=== PATIENT | female | born 1975 | race Caucasian/White ===

== ENCOUNTER → 2017-05-17 | Outpatient (CLI) | payer BC, OTHER ==
[2017-05-17 13:25] LABS: BASO % 0.3 % (0.0-1.0); EOS # 0.1 10^3/uL (0.0-0.50); EOS % 1.3 % (0.0-3.0); IMMATURE GRANULOCYTE % 0.3 % (0-0); LYMPH # 1.5 10^3/uL (1.5-4.5); LYMPH % 24.8 % (24.0-44.0); MEAN CORPUSCULAR HGB CONC 31.8 g/dl (32.0-36.5); MEAN CORPUSCULAR VOLUME 84.7 fl (80.0-96.0); MONO # 0.4 10^3/uL (0.0-0.8); MONO % 7.1 % (0.0-5.0); NEUTROPHILS # 4.1 10^3/uL (1.8-7.7); NEUTROPHILS % 66.2 % (36.0-66.0); PLATELET COUNT, AUTOMATED 312 10^3/uL (150-450); RED CELL DISTRIBUTION WIDTH 13.4 % (11.5-14.5); WHITE BLOOD COUNT 6.2 10^3/uL (4.0-10.0)
[2017-05-17 14:14] LABS: ALBUMIN 3.8 GM/DL (3.2-5.2); ALBUMIN/GLOBULIN RATIO 1.06 (1.00-1.93); ALKALINE PHOSPHATASE 62 U/L (45-117); ALT/SGPT 15 U/L (12-78); ANION GAP 8 MEQ/L (8-16); AST/SGOT 11 U/L (7-37); BILIRUBIN,TOTAL 0.4 MG/DL (0.2-1.0); BLOOD UREA NITROGEN 15 MG/DL (7-18); CALCIUM LEVEL 8.9 MG/DL (8.5-10.1); CARBON DIOXIDE LEVEL 27 MEQ/L (21-32); CHLORIDE LEVEL 104 MEQ/L (98-107); CHOLESTEROL LEVEL 209 MG/DL (<200); CREATININE FOR GFR 0.89 MG/DL (0.55-1.02); GLOMERULAR FILTRATION RATE > 60.0 (>60); GLUCOSE, FASTING 79 MG/DL (70-105); POTASSIUM SERUM 4.3 MEQ/L (3.5-5.1); SODIUM LEVEL 139 MEQ/L (136-145); TOTAL PROTEIN 7.4 GM/DL (6.4-8.2); TRIGLYCERIDES LEVEL 87 MG/DL (<150)
== END ==
LOC: M LAB 12:39
PROVIDERS: ATTEND Physician Assistant Medical
DX: Z83.3 Family history of diabetes mellitus (principal)

== ENCOUNTER → 2017-07-09 | Outpatient (REF) | payer BC, OTHER | LOC: M LAB REF 17:50 | DX: Z12.4 Encounter for screening for malignant neoplasm of cervix (principal) | CPT/HCPCS: G0123 ==

== ENCOUNTER → 2019-10-12 | Outpatient (CLI) | payer BC, OTHER ==
[2019-10-12 19:49] LABS: BASO % 0.4 % (0.0-1.0); EOS # 0.1 10^3/uL (0.0-0.5); EOS % 1.9 % (0.0-3.0); HEMATOCRIT 38.9 % (36.0-47.0); HEMOGLOBIN 12.2 g/dl (12.0-15.5); LYMPH # 1.7 10^3/uL (1.5-5.0); LYMPH % 24.7 % (24.0-44.0); MEAN CORPUSCULAR HEMOGLOBIN 27.4 pg (27.0-33.0); MEAN CORPUSCULAR HGB CONC 31.4 g/dl (32.0-36.5); MEAN CORPUSCULAR VOLUME 87.2 fl (80.0-96.0); MONO # 0.7 10^3/uL (0.0-0.8); MONO % 9.4 % (0.0-5.0); NEUTROPHILS # 4.4 10^3/uL (1.5-8.5); NEUTROPHILS % 63.3 % (36.0-66.0); PLATELET COUNT, AUTOMATED 320 10^3/uL (150-450); RED BLOOD COUNT 4.46 10^6/uL (4.00-5.40); WHITE BLOOD COUNT 6.9 10^3/uL (4.0-10.0)
[2019-10-12 20:32] LABS: ALBUMIN 3.6 GM/DL (3.2-5.2); ALT/SGPT 15 U/L (12-78); AMYLASE 45 U/L (25-115); BILIRUBIN,TOTAL 0.3 MG/DL (0.2-1.0); BLOOD UREA NITROGEN 17 MG/DL (7-18); CARBON DIOXIDE LEVEL 27 MEQ/L (21-32); CHLORIDE LEVEL 108 MEQ/L (98-107); CREATININE FOR GFR 0.94 MG/DL (0.55-1.30); GLOMERULAR FILTRATION RATE > 60.0 (>58); GLUCOSE, FASTING 74 MG/DL (70-100); LIPASE 86 U/L (73-393); SODIUM LEVEL 142 MEQ/L (136-145); TOTAL PROTEIN 7.1 GM/DL (6.4-8.2)
== END ==
LOC: M WUC 15:49
PROVIDERS: ATTEND Physician Assistant
DX: R10.9 Unspecified abdominal pain (principal)

== ENCOUNTER → 2019-10-20 | Outpatient (CLI) | payer BC, OTHER ==
[~2019-10-20] MED LIST: GASTROGRAFIN SOLUTION 30ML (Q9963) As Ordered ONE; ISOVUE-370 76% 100ML VIAL As Ordered ONE
--- NOTE | 2019-10-20 15:50 | REP ---
CT ABDOMEN AND PELVIS WITH IV AND ORAL CONTRAST: HISTORY: Abdomen pain. CT CONTRAST DOSE: 100 mL of intravenous Isovue 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 The lung bases are clear on axial CT images. There is a cyst in the left lobe of the liver measuring 1.1 cm in greatest diameter. No other focal liver lesion is seen. The spleen is unremarkable. Normal adrenal glands are seen bilaterally. No abnormalities noted in the gallbladder or in the pancreas. No retroperitoneal mass or adenopathy is observed. The kidneys enhance symmetrically and are morphologically intact. The left kidney is slightly smaller than the right. There is a tiny accessory splenule just beneath the spleen. Small and large intestinal bowel loops are normal in the upper abdomen. No abdominal wall defect is seen. There is some lipomatous change at the ileocecal valve. There is moderate large bowel content throughout the colon. Normal appendix is seen medial to the cecum in the central superior pelvis. There is no CT evidence of appendicitis. A normal left ovary is seen. The right ovary is somewhat enlarged and contains a septated cystic process. Its overall dimensions are 5.5 x 4.1 x 4.4 cm. There is no evidence of ascites. No pelvic adenopathy is seen. The uterus appears somewhat retroverted. Urinary bladder is unremarkable. No bony destructive lesion is seen. IMPRESSION: Normal appendix is visible. Septated cystic enlargement right ovary. I cannot exclude early ovarian neoplasm. Right ovary is positioned somewhat posteriorly in the pelvis and ovarian torsion could be in the differential as well if this is an acute pain presentation. Electronically Signed by Leland Flores MD 10/20/2019 04:20 P
== END ==
LOC: M RAD 12:34
PROVIDERS: ATTEND Physician Assistant
DX: R10.9 Unspecified abdominal pain (principal)
CPT/HCPCS: 74177; Q9963; Q9967

== ENCOUNTER → 2019-10-31 | Outpatient (CLI) | payer OTHER | LOC: M WHC 08:45 | PROVIDERS: ATTEND Obstetrics & Gynecology | DX: N83.201 Unspecified ovarian cyst, right side (principal); Z53.9 Procedure and treatment not carried out, unspecified reason ==

== ENCOUNTER → 2019-11-16 | Outpatient (CLI) | payer BC ==
--- NOTE | 2019-11-16 19:59 | REP ---
Clinical: Right ovarian cyst . Technique: Transabdominal pelvic ultrasound followed by transvaginal examination for better evaluation of the endometrium and adnexa with color Doppler evaluation of the ovaries. Findings: Bladder is under distended Heterogeneous retroverted uterus measures 7.4 x 3.9 x 5.6 cm . The endometrial complex measures 18 mm thickness and appears echogenic. No discrete uterine or endometrial abnormalities are appreciated. Nabothian cysts are identified measuring up to 10 mm. Bilateral ovaries are normal in vascularity without evidence for torsion. Right ovary measures 5.6 x 3.4 x 6.7 cm (RI 0.78) and includes 5.0 x 6.5 x 3.0 cm complex cyst. Left ovary measures 3.9 x 2.7 x 3.7 cm (RI 0.67) and includes 2.1 cm simple cyst and 3.1 x 2.4 x 2.0 cm complex cyst. No pelvic free fluid. Impression: 1. Heterogeneous retroverted uterus with thickened endometrium. No discrete uterine or endometrial abnormality otherwise identified. 2. Complex bilateral ovarian cysts. Follow-up examination in 4-6 weeks to evaluate for resolution is recommended.
== END ==
LOC: M WHC 15:33
PROVIDERS: ATTEND Obstetrics & Gynecology
DX: N83.201 Unspecified ovarian cyst, right side (principal); N83.202 Unspecified ovarian cyst, left side

== ENCOUNTER 2019-11-25 16:32 | Emergency (ER) | payer BC, OTHER ==
[~2019-11-25] VITALS: Ht 157.5 cm; Wt 75.3 kg
[2019-11-25] MEDS ORDERED: NS 1,000 ML IV ONE (17:15)
[2019-11-25] MEDS ORDERED: KETOROLAC 30 MG/ML 1ML VIAL IV ONE (17:15)
[2019-11-25 17:17] LABS: BASO % 0.2 % (0.0-1.0); EOS # 0.1 10^3/uL (0.0-0.5); EOS % 0.9 % (0.0-3.0); HEMATOCRIT 42.6 % (36.0-47.0); HEMOGLOBIN 13.9 g/dl (12.0-15.5); LYMPH # 1.4 10^3/uL (1.5-5.0); MEAN CORPUSCULAR HEMOGLOBIN 27.9 pg (27.0-33.0); MEAN CORPUSCULAR HGB CONC 32.6 g/dl (32.0-36.5); MEAN CORPUSCULAR VOLUME 85.4 fl (80.0-96.0); MONO # 0.6 10^3/uL (0.0-0.8); MONO % 5.7 % (0.0-5.0); NEUTROPHILS # 8.5 10^3/uL (1.5-8.5); PLATELET COUNT, AUTOMATED 307 10^3/uL (150-450); RED BLOOD COUNT 4.99 10^6/uL (4.00-5.40); WHITE BLOOD COUNT 10.7 10^3/uL (4.0-10.0)
[2019-11-25 17:45] LABS: ALBUMIN 3.8 GM/DL (3.2-5.2); BILIRUBIN,DIRECT 0.1 MG/DL (0.0-0.2); BILIRUBIN,TOTAL 0.4 MG/DL (0.2-1.0); TOTAL PROTEIN 7.5 GM/DL (6.4-8.2)
[2019-11-25] MEDS ORDERED: ISOVUE-370 76% 100ML VIAL As Ordered ONE (17:53)
--- NOTE | 2019-11-25 18:30 | REPVR ---
PROCEDURE INFORMATION: Exam: CT Abdomen And Pelvis With Contrast Exam date and time: 11/25/2019 5:58 PM Age: 44 years old Clinical indication: Abdominal pain; Localized; Lower; Additional info: Lower abd pain, elev. Wbc, HX gallstones, ovary cysts TECHNIQUE: Imaging protocol: Computed tomography of the abdomen and pelvis with intravenous contrast. Radiation optimization: All CT scans at this facility use at least one of these dose optimization techniques: automated exposure control; mA and/or kV adjustment per patient size (includes targeted exams where dose is matched to clinical indication); or iterative reconstruction. Contrast material: ISOVUE 370; Contrast volume: 100 ml; Contrast route: IV; COMPARISON: CT ABD PELVIS WITH CONTRAST 10/20/2019 2:23 PM FINDINGS: Liver: There is a 10 mm simple cyst in the left lobe of the liver. No change from prior scan. The The liver is otherwise normal. Gallbladder and bile ducts: There is a calcified gallstone within the gallbladder. No wall thickening. Bile ducts are normal. Pancreas: The pancreas is normal. Spleen: The spleen is normal. Adrenals: The adrenal glands are normal. Kidneys and ureters: The kidneys are normal.No hydronephrosis. Stomach and bowel: Unremarkable. No obstruction. No mucosal thickening. Appendix: The appendix is well visualized and is normal. Intraperitoneal space: There is a small amount of free fluid in the right side of the no fluid collection. No free air. pelvis, also present on the prior scan. Vasculature: Unremarkable. No abdominal aortic aneurysm. Lymph nodes: Unremarkable. No enlarged lymph nodes. Bladder: Unremarkable as visualized. Reproductive: There is a large right ovarian cyst measuring up to 6 cm.. It measured 5 cm. On the recent comparison scan. There is a left ovarian cyst measuring up to 3.5 cm. Not seen on the prior scan. The endometrium is thickened. Bones/joints: Unremarkable. No acute fracture. Soft tissues: Unremarkable. IMPRESSION: 6 cm complex right ovarian cyst appears slightly larger than on the recent comparison scan. Cystic neoplasm cannot be excluded. There is a new 3.5 cm left ovarian cyst. Electronically signed by: Pako Keyes On 11/25/2019 18:30:08 PM
--- NOTE | 2019-11-25 20:37 | REPVR ---
PROCEDURE INFORMATION: Exam: US Nonobstetric Pelvis; Complete Exam date and time: 11/25/2019 8:14 PM Age: 44 years old Clinical indication: Pelvic pain; Additional info: Large cysts, R/O torsion TECHNIQUE: Imaging protocol: Transabdominal pelvic nonobstetric ultrasound. Complete exam. Real time ultrasound with image documentation. COMPARISON: PELVIS NON-OB COMPLETE US 11/16/2019 4:20 PM FINDINGS: Uterus/cervix: The uterus measures 6.2 x 4.6 x 5.6 cm. The endometrium is thickened measuring 25 mm which is increased from 18 mm on the previous scan. Uterus is retroverted. No discrete mass identified. Right adnexa: The right ovary measures 5.1 x 4.1 x 6.2 cm. It contains a complex cystic structure measuring 4.3 x 2.8 x 5.8 cm. This does not appear larger than on the prior scan. There are septations and internal echogenic material. This suggest hemorrhage. It appears avascular. There is no evidence of torsion. Left adnexa: The left ovary measures 3.2 x 3.1 x 3.4 cm. It contains a cyst measuring 3.0 x 2.7 x 2.7 cm. This is slightly larger than on the prior scan. It contains internal echoes. No evidence of torsion. Free fluid: There is a trace of free fluid in the pelvic cul-de-sac. Bladder: Normal. IMPRESSION: 1. Complex cyst in the right ovary measuring up to 5.8 cm. No abnormal vascularity. No torsion. This is most consistent with a hemorrhagic cyst. 4-6 week continued follow up recommended. 2. Left ovarian cyst measuring 3.0 x 2.7 x 2.7 cm also appears hemorrhagic. Slightly larger than on the prior scan. Continued short-term follow-up in 4-6 weeks suggested. 3. Persistent endometrial thickening. Electronically signed by: Pako Keyes On 11/25/2019 20:36:56 PM
[2019-11-25] MEDS ORDERED: HYDR-3715 PO (21:01)
[2019-11-25 21:10] VITALS: BP 130/68
[2019-11-25] MEDS ORDERED: NORCO 5/325MG TABLET (BULK FOR ED) PO ONE (21:15)
--- NOTE | 2019-11-26 07:32 | ED PDOC ---
Post-Departure Follow-Up dr veliz and yu carty faxed formal report of pelvic us for fu mg Juanis Cullen MD Nov 26, 2019 07:32
== END 2019-11-25 21:21 | disposition home or self-care (01) ==
LOC: M ED 16:32
DX: N83.201 Unspecified ovarian cyst, right side (principal); N83.202 Unspecified ovarian cyst, left side; R93.89 Abnormal findings on diagnostic imaging of other specified body structures; K80.20 Calculus of gallbladder without cholecystitis without obstruction; Z87.42 Personal history of other diseases of the female genital tract; Z86.79 Personal history of other diseases of the circulatory system; Z88.0 Allergy status to penicillin
CPT/HCPCS: 74177; 76830; 76856; 80047; 80076; 81001; 83690; 84702; 85025; 93976; 96361; 96374; 99284; J1885; Q9967

== ENCOUNTER → 2019-12-06 | Outpatient (CLI) | payer BC, OTHER ==
[~2019-12-06] MED LIST changes: +ALLE24TA7 PO; +D31000TA2 PO; -GASTROGRAFIN SOLUTION 30ML (Q9963) As Ordered ONE; +HYDR-3715 PO; +IBUP-1022 PO; -ISOVUE-370 76% 100ML VIAL As Ordered ONE; +MULTCAP PO
[2019-12-06 16:29] LABS: C REACTIVE PROTEIN QUANTITATIV < 0.30 MG/DL (0.00-0.30); IMMUNOGLOBULIN G 1230 MG/DL (681-1648)
[2019-12-09 12:08] LABS: F002-IgE Milk < 0.10 kU/L (Class 0); F004-IgE Wheat < 0.10 kU/L (Class 0); F013-IgE Peanut < 0.10 kU/L (Class 0); F014-IgE Soybean < 0.10 kU/L (Class 0); F026-IgE Pork < 0.10 kU/L (Class 0); F027-IgE Beef < 0.10 kU/L (Class 0); F245-IgE Egg, Whole < 0.10 kU/L (Class 0); FX02-IgE Food Mix (Sea Foods) Negative (.); TISSUE TRANSGLUTAMINASE IgA <2 U/mL (0-3)
== END ==
LOC: M WUC 13:26
PROVIDERS: ATTEND Specialist
DX: R10.30 Lower abdominal pain, unspecified (principal)

== ENCOUNTER → 2019-12-15 | Outpatient (REF) | payer OTHER ==
[~2019-12-15] MED LIST changes: -ALLE24TA7 PO; -D31000TA2 PO; +VITAD1000T PO
== END ==
LOC: M LAB REF 10:47
PROVIDERS: ATTEND Specialist
DX: R10.30 Lower abdominal pain, unspecified (principal)

== ENCOUNTER → 2019-12-30 | Outpatient (CLI) | payer BC, OTHER ==
[~2019-12-30] MED LIST changes: +ALLE24TA7 PO; +D31000TA2 PO; -VITAD1000T PO
== END ==
LOC: M LABSMTC 11:53
PROVIDERS: ATTEND Anesthesiology
DX: Z01.818 Encounter for other preprocedural examination (principal); Z11.59 Encounter for screening for other viral diseases
CPT/HCPCS: C9803; U0003

== ENCOUNTER → 2020-01-01 | Outpatient (CLI) | payer BC, OTHER ==
[2020-01-01 13:39] LABS: BASO % 0.4 % (0.0-1.0); EOS # 0.1 10^3/uL (0.0-0.5); EOS % 1.5 % (0.0-3.0); HEMATOCRIT 40.8 % (36.0-47.0); LYMPH % 19.2 % (24.0-44.0); MEAN CORPUSCULAR HEMOGLOBIN 27.8 pg (27.0-33.0); MEAN CORPUSCULAR HGB CONC 31.9 g/dl (32.0-36.5); MEAN CORPUSCULAR VOLUME 87.4 fl (80.0-96.0); MONO # 0.4 10^3/uL (0.0-0.8); MONO % 7.4 % (0.0-5.0); NEUTROPHILS # 3.9 10^3/uL (1.5-8.5); NEUTROPHILS % 71.3 % (36.0-66.0); PLATELET COUNT, AUTOMATED 312 10^3/uL (150-450); RED BLOOD COUNT 4.67 10^6/uL (4.00-5.40); WHITE BLOOD COUNT 5.4 10^3/uL (4.0-10.0)
[2020-01-01 14:26] LABS: BLOOD UREA NITROGEN 9 MG/DL (7-18); CALCIUM LEVEL 9.1 MG/DL (8.5-10.1); CARBON DIOXIDE LEVEL 26 MEQ/L (21-32); CHLORIDE LEVEL 108 MEQ/L (98-107); CREATININE FOR GFR 0.89 MG/DL (0.55-1.30); FREE T4 1.13 NG/DL (0.76-1.46); GLOMERULAR FILTRATION RATE > 60.0 (>58); GLUCOSE, FASTING 88 MG/DL (70-100); POTASSIUM SERUM 4.3 MEQ/L (3.5-5.1); SODIUM LEVEL 139 MEQ/L (136-145)
[2020-01-01 14:29] LABS: FOLATE 19.1 NG/ML; VITAMIN B12 LEVEL 508 PG/ML
== END ==
LOC: M WUC 10:43
PROVIDERS: ATTEND Physician Assistant Medical
DX: R20.2 Paresthesia of skin (principal); E55.9 Vitamin D deficiency, unspecified

== ENCOUNTER 2020-01-04 08:45 | Day surgery (SDC) | payer BC, OTHER ==
[~2020-01-04] VITALS: Ht 157.5 cm; Wt 72.6 kg
[2020-01-04] VITALS (7 sets, daily range): BP systolic 106–132; BP diastolic 58–78
[~2020-01-04 08:45] MED LIST changes: -ALLE24TA7 PO; -D31000TA2 PO; +LIDOCAINE 1% MDV 20ML VIAL SQ PRN; +LR 1,000 ML IV ONE; +VITAD1000T PO
[2020-01-04] MEDS ORDERED: propofoL 200 MG/20 ML VIAL As Ordered ONE (09:11)
[2020-01-04] MEDS ORDERED: KETOROLAC 60MG 2ML VIAL As Ordered ONE (09:11)
[2020-01-04] MEDS ORDERED: dexameTHASONE 4 MG/ML 1ML VIAL (J1100 PER 1MG) As Ordered ONE (09:11)
[2020-01-04] MEDS ORDERED: ROCURONIUM BROMIDE 50 MG/5 ML VIAL As Ordered ONE ×2 (09:11→11:20)
[2020-01-04] MEDS ORDERED: LIDOCAINE 2% 100MG/5ML SDV (FOR ANES.) As Ordered ONE (09:11)
[2020-01-04] MEDS ORDERED: ONDANSETRON 4MG/2ML VIAL As Ordered ONE (09:11)
[2020-01-04] MEDS ORDERED: SUGAMMADEX SODIUM 500 MG/5 ML VIAL (BRIDION) As Ordered ONE (09:11)
[2020-01-04] MEDS ORDERED: MIDAZOLAM INJ 2MG/2ML VIAL (J2250 PER 1MG) As Ordered ONE (09:12)
[2020-01-04] MEDS ORDERED: fentaNYL 250 MCG/5 ML INJECTION (J3010) As Ordered ONE (09:12)
[2020-01-04] MEDS ORDERED: ALLE24TA7 PO (09:24)
[2020-01-04 09:27] LABS: HEMATOCRIT 39.8 % (36.0-47.0); HEMOGLOBIN 12.7 g/dl (12.0-15.5); MEAN CORPUSCULAR HEMOGLOBIN 27.9 pg (27.0-33.0); MEAN CORPUSCULAR HGB CONC 31.9 g/dl (32.0-36.5); MEAN CORPUSCULAR VOLUME 87.5 fl (80.0-96.0); PLATELET COUNT, AUTOMATED 304 10^3/uL (150-450); RED BLOOD COUNT 4.55 10^6/uL (4.00-5.40); WHITE BLOOD COUNT 5.3 10^3/uL (4.0-10.0)
[2020-01-04] MEDS ORDERED: ceFAZolin SOD 2 GM in IV 1 EA IV ONE (10:00)
[2020-01-04] MEDS ORDERED: ACETAMINOPHEN 1000MG 100ML IV BTL (OFIRMEV) (J0131 PER 10MG) As Ordered ONE ×2 (11:17→11:20)
[2020-01-04] MEDS ORDERED: HYDROmorphone HCL 2 MG/ML 1ML VIAL (J1170) As Ordered ONE (12:30)
[2020-01-04] MEDS ORDERED: MORPHINE 1MG/ML IN 0.9% NACL 100ML IV BAG IV PRN (14:15)
[2020-01-04] MEDS ORDERED: NS 1,000 ML IV SCH (14:15)
[2020-01-04] MEDS ORDERED: LR 1,000 ML IV SCH (14:15)
[2020-01-04] MEDS ORDERED: EPIDURAL/PCA KEYS XX PRN (14:15)
[2020-01-04] MEDS ORDERED: NALBUPHINE HCL 10 MG/ML AMP (J2300) IV PRN (14:15)
[2020-01-04] MEDS ORDERED: oxyCODONE 5MG TAB PO PRN (14:15)
[2020-01-04] MEDS ORDERED: diphenhydrAMINE 50MG/ML VIAL (J1200) IV PRN (14:15)
[2020-01-04] MEDS ORDERED: ONDANSETRON 4MG/2ML VIAL IV PRN (14:15)
[2020-01-04] MEDS ORDERED: NALOXONE INJ 0.4MG/1ML VIAL (J2310 PER 1MG) IV PRN (14:15)
[2020-01-04] MEDS ORDERED: HYDROMORPHONE HCL 0.5 MG/ 0.5 ML SYRINGE (J1170 PER 1) IV PRN (14:15)
[2020-01-04] MEDS: fentaNYL 100 MCG/2 ML INJECTION (J3010) IV PRN ×2 (14:22→14:29)
[2020-01-04] MEDS: LR 1,000 ML IV SCH (18:23)
[2020-01-04] MEDS: IBUPROFEN 600MG TAB PO PRN (20:03)
[2020-01-05] VITALS: BP 126/68
[2020-01-05] MEDS: IBUPROFEN 600MG TAB PO PRN ×2 (02:21→10:12)
[2020-01-05] MEDS: LR 1,000 ML IV SCH (02:21)
[2020-01-05 04:00] VITALS: BP 114/69
[2020-01-05] MEDS ORDERED: NORCO, ANEXSIA 5/325MG TABLET (HYDROcodone/ACETAMINOPHEN) PO PRN (06:00)
[2020-01-05 07:28] LABS: HEMATOCRIT 34.4 % (36.0-47.0); MEAN CORPUSCULAR HEMOGLOBIN 28.2 pg (27.0-33.0); MEAN CORPUSCULAR VOLUME 88.2 fl (80.0-96.0); PLATELET COUNT, AUTOMATED 312 10^3/uL (150-450)
[2020-01-05 08:00] VITALS: BP 118/72
--- NOTE | 2020-01-11 12:02 | RO ---
DATE OF PROCEDURE: 01/04/2020 PREOPERATIVE DIAGNOSIS: Pain, bleeding, cysts, and tenderness. POSTOPERATIVE DIAGNOSIS: Pain, bleeding, cysts, and tenderness, extensive endometriosis and adhesions. PROCEDURE: LAVH, BSO with extensive lysis of adhesions. The lysis of adhesions took more than half the operative time and was well beyond the normal that one would encounter. SURGEON: Dr. Daayna Umanzor STUCCO MASON: Maureen Davidson NP ANESTHESIA: General endotracheal anesthesia. SPECIMEN: Uterus, ovaries and tubes. DESCRIPTION OF PROCEDURE: Aubrie was brought to the operating room where sufficient general endotracheal anesthesia was induced. She was prepped, draped and positioned in the usual sterile fashion. The uterine manipulator placed after the uterus was sounded to 9. The Mcmahon with the ability to back fill the bladder was placed. Then attention was turned to the abdomen. A transverse semilunar incision was made below the umbilicus. Sharp and blunt dissection continued through subcutaneous tissues to the level of the rectus fascia which was transversely incised under direct visualization in open laparoscopic technique. The peritoneum was then directly visualized and entered and the Srinath cannula placed, again, under direct visualization, in open laparoscopic technique. The #0 Vicryl retention sutures that were in the fascia were then used to secure the Ceballos cannula and CO2 insufflation was then begun. After adequate CO2 insufflation, the peritoneal cavity was visualized. The superior abdomen was normal in appearance. The anterior surface of the bowel was initially normal in appearance, but then with Trendelenburg, although there was no ascites nor excrescences, there were extensive adhesions in the pelvis. With Trendelenburg, we still could not elevate the uterus and the bowel was adherent to the posterior aspect of the uterus and to the right ovary which was markedly distended with cysts as was the left ovary. There were also powder burn like lesions consistent with endometriosis. There were also descending colon adhesions to the pelvic sidewall, to the ovary, to the infundibulopelvic ligament, etc. Cold scissors were used to take down the adhesions on the left side to see if we could free up that ovary and given the level of the adhesions and lack of the mobility of the uterus, because everything was just locked in, in the pelvis, a right lower quadrant port was placed. We worked with that initially, seeing if we could use those two sites and the uterine manipulator to free the tissues enough, but the uterine manipulator just really was immobile, except for cephalad and caudad, miniscule movement, and so a left lower quadrant port was also needed to try to give counter traction on the bowel. So we very, very carefully using cold scissors freed the bowel up enough to have access to that infundibulopelvic ligament. We then used the Enseal, again carefully displacing the bowel, to take care of the blood supply at the infundibulopelvic ligament on the left side. We had also seen infundibulopelvic distended over the markedly enlarged right ovary and see what we were pretty sure was fallopian tube on the right, but we had to do quite a bit of dissection to free that up and confirm that that was not bowel there, at which point, we could control the blood supply to that ovary even though it was densely and firmly adherent and immobile. So we mobilized enough to safely secure the blood supply there and then took the round ligament to try to mobilize the uterus around it and we could see that we just could not free up and we cut across the tube just to get access and we could see that we could not free up that ovary. So decision was made to transect the utero-ovarian suspensory ligament and then after delivering the uterus come back for that ovary if we could get the uterus laparoscopically. We then went back on the left side where we could free that ovary a little bit better. We took the round ligament and superior aspect of the broad there. We were able to complete the bladder flap and we had left ovary and tube free after extensive mostly cold dissection and then of course the typical cautery use in the vascular supplies. We were able to free the bladder flap and posteriorly as documented in the pictures we really had some dense adhesions and also some adhesions of bowel there that I felt that I could get manually because they were close enough to the pelvis more safely than from above because we were having trouble getting counter traction because the uterus was so immobile. So we went ahead having freed that tube and ovary from the patient and having freed the blood supply of the other ovary, but it was densely adherent and so we freed it from the uterus and then went below. Working vaginally, we removed the uterine manipulator, made a circumferential incision around the base of the cervix, isolated the cardinal ligaments which were clamped, transected and ligated. Isolated the uterosacrals which were clamped, transected and ligated. We were not able to get in posteriorly at that point, which was not a surprise, but we were able to displace all the adhesions of bowel safely and then we were able to get in anteriorly and control the inferior aspect of the uterine vasculature and then with careful manipulation we were able to get in posteriorly and then carefully work our way along the uterine vasculature to deliver the uterus with the attached left ovary and tube. We then packed the vagina with moist laps and then went back up and reinsufflated the peritoneum so that we could carefully work on that ovary for which we had dissected the blood supply. Pictures document that this was a very careful, slow, tedious process and the ovary and the tube on that side were carefully using the cold scissors and counter traction with tools all three ports really carefully free that up. It took an extensive amount of time, again, more than half of this case was simply working on the adhesions which were absolutely atypical, but we were careful just to make very slow and deliberate progress. With that, we were able to free the ovary and tube from the intestine. Then we delivered the ovary and tube back out the vagina. Then working vaginally, close the vaginal cuff with #0 Vicryl suture with good approximation and hemostasis achieved. Then reinsufflated, carefully reevaluated all the pedicles, and there was no significant bleeding. We then filled the pelvis with fluid, making sure we took the patient out of Trendelenburg so the fluid would stay in the pelvis and waited. Of course, it foams when you first place it, but we sucked off a lot of that foam and then waited and waited and had no evidence of bowel injury, which was consistent with what we saw as we worked along, but we went ahead and made this double check. Similarly, we had back filled the bladder and were able to confirm no evidence of bladder injury and no evidence of bowel injury. We did have to make very atypical length of time for this case, but definitely no evidence of surgical complication in that regard. The procedure was then ended with as much as that fluid as possible suctioned out. Of course, one cannot get it all. Then the wounds at the umbilicus and the two ports in each lower quadrant were also closed. The fascial wound at the umbilicus was closed with a #0 Vicryl suture and the two 5 mm ports and then the skin at the umbilicus were closed with #3-0 Vicryl in a subcuticular stitch. Dry sterile dressings were then applied. Estimated blood loss for the procedure about 75 mL. Fluid replacement crystalloid. Complications: None. Condition and Disposition: Aubrie tolerated the procedure well and was recovering in the recovery room in good condition.
== END 2020-01-05 11:00 | disposition home or self-care (01) ==
LOC: M SDC 08:45 → M PED 15:05 → M SDC 01-05 11:00
PROVIDERS: ATTEND Obstetrics & Gynecology
DX: R10.2 Pelvic and perineal pain (principal); N93.9 Abnormal uterine and vaginal bleeding, unspecified; N72 Inflammatory disease of cervix uteri; N80.0 Endometriosis of uterus; Z88.0 Allergy status to penicillin; Z88.1 Allergy status to other antibiotic agents
CPT/HCPCS: 36415; 58571; 81025; 85027; 86850; 86900; 86901; 88307; 96360; 96361; J0131; J0690; J1100; J1885; J2250; J2405; J3010

== ENCOUNTER → 2020-01-31 | Outpatient (REF) | payer OTHER ==
[~2020-01-31] MED LIST changes: +ALLE24TA7 PO; +D31000TA2 PO; -LIDOCAINE 1% MDV 20ML VIAL SQ PRN; -LR 1,000 ML IV ONE; -VITAD1000T PO
[2020-04-16 15:30] LABS: Lyme Disease IgG/IgM Antibodie See Separate Report
== END ==
LOC: M LABWUC 11:57
PROVIDERS: ATTEND Physician Assistant Medical
DX: R20.2 Paresthesia of skin (principal)

== ENCOUNTER → 2020-05-15 | Outpatient (CLI) | payer BC, OTHER ==
--- NOTE | 2020-05-15 15:34 | REPVR ---
PROCEDURE INFORMATION: Exam: MR Head Without Contrast Exam date and time: 05/15/2020 2:14 PM Age: 44 years old Clinical indication: Other: Labrynthitis lt ear TECHNIQUE: Imaging protocol: MR of the head without contrast. 3D rendering (Not supervised by radiologist): MIP and/or 3D reconstructed images were created by the technologist. COMPARISON: No relevant prior studies available. FINDINGS: Brain: There is no extra-axial collection or intra-axial mass. There are minimal scattered foci of T2/FLAIR hyperintensity, nonspecific. Normal parenchymal signal is preserved. There is no diffusion restriction. Cerebral ventricles: Normal. No ventriculomegaly. Bones/joints: Unremarkable. Paranasal sinuses: Normal as visualized. No acute sinusitis. Mastoid air cells: Normal as visualized. No mastoid effusion. Orbits: Unremarkable. Soft tissues: Unremarkable. IMPRESSION: Nonspecific T2/FLAIR white matter hyperintensities, potentially small vessel ischemia, demyelination or sequelae of migraine headaches. Electronically signed by: Courtney Torres On 05/15/2020 15:34:45 PM
== END ==
LOC: M RAD 13:06
PROVIDERS: ATTEND Otolaryngology
DX: H83.02 Labyrinthitis, left ear (principal)

== ENCOUNTER → 2021-08-11 | Outpatient (CLI) | payer BC, OTHER ==
[2021-08-11 13:05] LABS: ESTRADIOL 44.5 PG/ML; FOLLICLE STIMULATING HORMONE 75.9 mIU/mL; LUTEINIZING HORMONE 36.6 mIU/mL; PROGESTERONE 0.21 NG/ML
[2021-08-12 15:07] LABS: TESTOSTERONE FREE (DIRECT) 1.7 pg/mL (0.0-4.2)
== END ==
LOC: M LAB 11:46
PROVIDERS: ATTEND Obstetrics & Gynecology
DX: N95.1 Menopausal and female climacteric states (principal)

== ENCOUNTER → 2021-10-20 | Outpatient (CLI) | payer BC, OTHER ==
[~2021-10-20] MED LIST changes: -D31000TA2 PO; +VITA100093 PO
[2021-10-20 19:46] LABS: ESTRADIOL < 19.0 PG/ML; FOLLICLE STIMULATING HORMONE 111.5 mIU/mL; LUTEINIZING HORMONE 49.2 mIU/mL; PROGESTERONE 0.21 NG/ML
[2021-10-22 17:08] LABS: TESTOSTERONE FREE (DIRECT) 0.3 pg/mL (0.0-4.2); TESTOSTERONE TOTAL FOR T&D < 3.0 ng/dL (4-50)
== END ==
LOC: M LAB 18:30
PROVIDERS: ATTEND Obstetrics & Gynecology
DX: N95.1 Menopausal and female climacteric states (principal)

== ENCOUNTER → 2022-03-22 | Outpatient (CLI) | payer BC, OTHER ==
[2022-03-23 09:52] LABS: ESTRADIOL 46.7 PG/ML; FOLLICLE STIMULATING HORMONE 62.2 mIU/mL; LUTEINIZING HORMONE 25.2 mIU/mL; PROGESTERONE 0.33 NG/ML
[2022-03-24 18:08] LABS: TESTOSTERONE FREE (DIRECT) 0.6 pg/mL (0.0-4.2)
== END ==
LOC: M LAB 11:18
PROVIDERS: ATTEND Obstetrics & Gynecology
DX: N95.1 Menopausal and female climacteric states (principal); E34.9 Endocrine disorder, unspecified; F52.0 Hypoactive sexual desire disorder

== ENCOUNTER → 2022-03-30 | Outpatient (CLI) | payer BC, OTHER ==
[~2022-03-30] MED LIST changes: +GASTROGRAFIN SOLUTION 30ML (Q9963) As Ordered ONE; +ISOVUE-370 76% 100ML VIAL As Ordered ONE
== END ==
LOC: M RAD 14:31
PROVIDERS: ATTEND Nurse Practitioner Family
DX: R10.31 Right lower quadrant pain (principal); Z90.79 Acquired absence of other genital organ(s)
CPT/HCPCS: 74177; Q9963; Q9967

== ENCOUNTER 2022-06-17 09:50 | Day surgery (SDC) | payer BC, OTHER ==
[~2022-06-17] VITALS: Ht 157.5 cm; Wt 81.2 kg
[~2022-06-17 09:50] MED LIST changes: -GASTROGRAFIN SOLUTION 30ML (Q9963) As Ordered ONE; -ISOVUE-370 76% 100ML VIAL As Ordered ONE; +NS 1,000 ML IV ONE
[2022-06-17 11:18] VITALS: BP 120/79
== END 2022-06-17 11:22 | disposition home or self-care (01) ==
LOC: M OPP 09:50
PROVIDERS: ATTEND Surgery
DX: R10.31 Right lower quadrant pain (principal); K63.5 Polyp of colon; K63.89 Other specified diseases of intestine; K64.0 First degree hemorrhoids; Z80.0 Family history of malignant neoplasm of digestive organs; Z79.890 Hormone replacement therapy; Z88.0 Allergy status to penicillin; Z88.1 Allergy status to other antibiotic agents; Z80.3 Family history of malignant neoplasm of breast

== ENCOUNTER → 2023-09-12 | Outpatient (CLI) | payer BC ==
[~2023-09-12] MED LIST changes: -NS 1,000 ML IV ONE
[2023-09-12 10:34] LABS: BASO % 0.5 % (0.0-1.0); EOS # 0.1 10^3/uL (0.0-0.5); EOS % 3.3 % (0.0-3.0); HEMATOCRIT 41.6 % (36.0-47.0); HEMOGLOBIN 13.6 g/dl (12.0-15.5); LYMPH # 1.2 10^3/uL (1.5-5.0); MEAN CORPUSCULAR HEMOGLOBIN 28.7 pg (27.0-33.0); MEAN CORPUSCULAR HGB CONC 32.7 g/dl (32.0-36.5); MEAN CORPUSCULAR VOLUME 87.8 fl (80.0-96.0); MONO # 0.4 10^3/uL (0.0-0.8); MONO % 11.7 % (2.0-8.0); NEUTROPHILS # 1.9 10^3/uL (1.5-8.5); NEUTROPHILS % 51.2 % (36.0-66.0); PLATELET COUNT, AUTOMATED 263 10^3/uL (150-450); RED BLOOD COUNT 4.74 10^6/uL (4.00-5.40); WHITE BLOOD COUNT 3.7 10^3/uL (4.0-10.0)
[2023-09-12 11:03] LABS: ALKALINE PHOSPHATASE 56 U/L (46-116); ALT/SGPT 17 U/L (7.0-40); AST/SGOT 17 U/L (<34); BILIRUBIN,TOTAL 0.7 MG/DL (0.3-1.2); BLOOD UREA NITROGEN 18 MG/DL (9-23); CALCIUM LEVEL 9.1 MG/DL (8.5-10.1); CARBON DIOXIDE LEVEL 26 MMOL/L (20-31); CHLORIDE LEVEL 110 MMOL/L (98-107); CHOLESTEROL LEVEL 191 MG/DL (<200); CHOLESTEROL RISK RATIO 3.41 (<5); CREATININE FOR GFR 0.86 MG/DL (0.55-1.30); GLOMERULAR FILTRATION RATE > 60.0 (>58); GLUCOSE, FASTING 83 MG/DL (60-100); LDL CHOLESTEROL 117.6 MG/DL (<100); POTASSIUM SERUM 4.3 MMOL/L (3.5-5.1); SODIUM LEVEL 140 MMOL/L (136-145); TOTAL PROTEIN 6.7 G/DL (5.7-8.2); TRIGLYCERIDES LEVEL 87 MG/DL (<150)
[2023-09-12 11:05] LABS: FREE T4 1.04 NG/DL (0.89-1.76); THYROID STIMULATING HORMONE 1.973 uIU/ML (0.55-4.78); TOTAL 25(OH) VITAMIN D 77.2 NG/ML (20.0-100.0)
== END ==
LOC: M LAB 09:59
PROVIDERS: ATTEND Nurse Practitioner Family
DX: Z00.00 Encounter for general adult medical examination without abnormal findings (principal)

== ENCOUNTER → 2023-11-18 | Outpatient (CLI) | payer BC ==
[2023-11-18 19:06] LABS: BASO % 0.5 % (0.0-1.0); EOS # 0.2 10^3/uL (0.0-0.5); EOS % 2.9 % (0.0-3.0); HEMATOCRIT 39.9 % (36.0-47.0); HEMOGLOBIN 13.1 g/dl (12.0-15.5); LYMPH # 1.7 10^3/uL (1.5-5.0); LYMPH % 28.3 % (24.0-44.0); MEAN CORPUSCULAR HEMOGLOBIN 29.2 pg (27.0-33.0); MEAN CORPUSCULAR HGB CONC 32.8 g/dl (32.0-36.5); MEAN CORPUSCULAR VOLUME 89.1 fl (80.0-96.0); MONO # 0.6 10^3/uL (0.0-0.8); NEUTROPHILS # 3.6 10^3/uL (1.5-8.5); NEUTROPHILS % 59.1 % (36.0-66.0); PLATELET COUNT, AUTOMATED 258 10^3/uL (150-450); RED BLOOD COUNT 4.48 10^6/uL (4.00-5.40); WHITE BLOOD COUNT 6.1 10^3/uL (4.0-10.0)
== END ==
LOC: M LAB 18:38
PROVIDERS: ATTEND Registered Nurse
DX: K92.1 Melena (principal)

== ENCOUNTER → 2023-11-25 | Outpatient (REF) | payer BC | LOC: M LAB REF 19:04 | PROVIDERS: ATTEND Registered Nurse | DX: K92.1 Melena (principal) ==

== ENCOUNTER 2024-05-17 23:55 | Emergency (ER) | payer BC ==
[~2024-05-17] VITALS: Ht 157.5 cm; Wt 82.2 kg
[2024-05-18 02:38] LABS: BASO % 0.5 % (0.0-1.0); EOS # 0.3 10^3/uL (0.0-0.5); EOS % 4.1 % (0.0-3.0); HEMATOCRIT 42.6 % (36.0-47.0); LYMPH % 30.5 % (24.0-44.0); MEAN CORPUSCULAR HEMOGLOBIN 28.6 pg (27.0-33.0); MEAN CORPUSCULAR HGB CONC 32.9 g/dl (32.0-36.5); MEAN CORPUSCULAR VOLUME 87.1 fl (80.0-96.0); MONO # 0.8 10^3/uL (0.0-0.8); MONO % 12.7 % (2.0-8.0); NEUTROPHILS # 3.5 10^3/uL (1.5-8.5); NEUTROPHILS % 51.9 % (36.0-66.0); PLATELET COUNT, AUTOMATED 288 10^3/uL (150-450); RED BLOOD COUNT 4.89 10^6/uL (4.00-5.40); WHITE BLOOD COUNT 6.6 10^3/uL (4.0-10.0)
[2024-05-18] MEDS ORDERED: ISOVUE-370 76% 100ML VIAL As Ordered ONE (02:44)
[2024-05-18 03:02] LABS: BLOOD UREA NITROGEN 19 MG/DL (9-23); CALCIUM LEVEL 9.6 MG/DL (8.5-10.1); CARBON DIOXIDE LEVEL 28 MMOL/L (20-31); CHLORIDE LEVEL 104 MMOL/L (98-107); CREATININE FOR GFR 0.88 MG/DL (0.55-1.30); GLOMERULAR FILTRATION RATE > 60.0 (>58); GLUCOSE, FASTING 90 MG/DL (60-100); POTASSIUM SERUM 3.7 MMOL/L (3.5-5.1); SODIUM LEVEL 139 MMOL/L (136-145)
[2024-05-18] MEDS ORDERED: CEPH500C PO (04:43)
[2024-05-18] MEDS: cefTRIAXone SOD 2 GM in DEXTROSE 5% (D5W) ADV/MINI-BAG 50 ML IV ONE (04:57)
[2024-05-18 05:20] VITALS: BP 132/62; TEMP 97; O2SAT 100
== END 2024-05-18 05:31 | disposition home or self-care (01) ==
LOC: M ED 23:55
DX: L03.211 Cellulitis of face (principal); Z88.0 Allergy status to penicillin; Z88.1 Allergy status to other antibiotic agents; Z79.2 Long term (current) use of antibiotics; Z79.1 Long term (current) use of non-steroidal anti-inflammatories (NSAID); Z79.899 Other long term (current) drug therapy
CPT/HCPCS: 70487; 80048; 83605; 85025; 86140; 96365; 99284; J0696; Q9967

== ENCOUNTER → 2025-01-05 | Outpatient (CLI) | payer BC ==
[~2025-01-05] MED LIST changes: +CEPH500C PO
== END ==
LOC: M WUC 10:47
PROVIDERS: ATTEND Nurse Practitioner Family
DX: M25.512 Pain in left shoulder (principal)

== ENCOUNTER → 2025-03-07 | Outpatient (CLI) | payer BC ==
[~2025-03-07] MED LIST changes: -IBUP-1022 PO; +IBUP600T42 PO
[2025-03-07 18:46] LABS: PLATELET COUNT, AUTOMATED 293 10^3/uL (150-450)
[2025-03-07 19:01] LABS: ALT/SGPT 12.0 U/L (7.0-40); AST/SGOT 18.0 U/L (<34); CALCIUM LEVEL 9.5 MG/DL (8.5-10.1); CARBON DIOXIDE LEVEL 27.0 MMOL/L (20-31); CHLORIDE LEVEL 105.0 MMOL/L (98-107); CHOLESTEROL LEVEL 244.0 MG/DL (<200); CHOLESTEROL RISK RATIO 3.54 (<5); CREATININE FOR GFR 0.98 MG/DL (0.55-1.30); GLOMERULAR FILTRATION RATE 71.6 (>58); LDL CHOLESTEROL 150.6 MG/DL (<100); NON-HDL-C 175.2 MG/DL; POTASSIUM SERUM 4.2 MMOL/L (3.5-5.1); SODIUM LEVEL 141.0 MMOL/L (136-145); TRIGLYCERIDES LEVEL 123.0 MG/DL (<150)
[2025-03-07 19:03] LABS: FREE T4 1.09 NG/DL (0.89-1.76); VITAMIN B12 LEVEL 420.0 PG/ML (211-911)
[2025-03-07 19:16] LABS: ESTIMATED AVERAGE GLUCOSE 108.0 MG/DL (60-110)
[2025-03-09 11:07] LABS: SEX HORMONE BINDING GLOBULIN 49.0 nmol/L (17-124)
[2025-03-14 00:03] LABS: TESTOSTERONE FREE (DIRECT) 1.2 pg/mL (0.1-6.4); TESTOSTERONE TOTAL FOR T&D 14.0 ng/dL (2-45)
== END ==
LOC: M LAB 16:38
PROVIDERS: ATTEND Nurse Practitioner Family
DX: R63.5 Abnormal weight gain (principal); R53.83 Other fatigue; R68.82 Decreased libido